=== PATIENT | male | born 1950 | race Two or more races ===

== ENCOUNTER 2019-10-26 19:06 | Emergency (ER) | payer MEDICARE, OTHER ==
[2019-10-26 19:09] VITALS: BP 179/80; PULSE 101
[2019-10-26] MEDS ORDERED: Diphtheria,Pertussis(Acell),Tetanus Vaccine 0.5 ML Syringe IM ONE (19:31)
[2019-10-26] MEDS ORDERED: cefTRIAXone 1 GM Vial IM ONE (19:31)
[2019-10-26] MEDS ORDERED: Lidocaine 1% 20 ML MDV INJECT ONE (19:35)
--- NOTE | 2019-10-26 19:35 | EDM.PDOC ---
ED HPI GENERAL MEDICAL PROBLEM - General Chief Complaint: General Stated Complaint: dog bite to R) hand Time Seen by Provider: 10/26/19 19:20 Source of Information: Reports: Patient History Limitations: Reports: No Limitations - History of Present Illness INITIAL COMMENTS - FREE TEXT/NARRATIVE: This patient is a 68 year old pleasant male that presents to the ER. Patient report that three days ago his ladies dog who is small and 14 years old scratched the top of his right hand. Patient reports he cleaned with soap and water everyday and after it happend and kept it covered. But over the past couple of days it has began to swell and red in color. Patient states NOT a dog BITE. A dog scratch. Onset Date: 10/23/19 Duration: Day(s): (3) Location: Reports: Upper Extremity, Right Front/Back Body Image: 1 - redness, swelling. 2 - small open wound. Severity: Moderate Improves with: Reports: None Worsens with: Reports: None Associated Symptoms: Denies: Confusion, Chest Pain, Cough, cough w sputum, Diaphoresis, Fever/Chills, Headaches, Loss of Appetite, Malaise, Nausea/Vomiting , Rash, Seizure, Shortness of Breath, Syncope, Weakness - Related Data Allergies Allergy/AdvReac Type Severity Reaction Status Date / Time No Known Allergies Allergy Verified 03/02/18 15:36 Home Meds: Home Meds Albuterol Sulfate [Albuterol Sulfate HFA] 2 puff INH Q4H PRN 03/10/15 [History] Aspirin [Halfprin] 1 tab PO DAILY 03/10/15 [History] Fluticasone/Salmeterol [Advair 500-50] 1 puff INH BID 03/10/15 [History] Hydrocodone/Acetaminophen [Hydrocodon-Acetaminophn 10-325] 1 tab PO TID PRN [History] Ipratropium [Atrovent] 1 vial INH Q6HR PRN 03/10/15 [History] Levothyroxine 1 tab PO DAILY 03/10/15 [History] Lisinopril 5 mg PO DAILY 03/10/15 [History] Montelukast Sodium 1 tab PO DAILY 03/10/15 [History] Amoxicillin/Potassium Clav [Augmentin 875-125 Tablet] 1 each PO BID #20 tablet 10/26/19 [Rx] Past Medical History HEENT History: Reports: Hard of Hearing Other HEENT History: wears bilateral HAs. Cardiovascular History: Reports: Hypertension Respiratory History: Reports: COPD, SOB Musculoskeletal History: Reports: Arthritis, Other (See Below) Other Musculoskeletal History: chronic left shoulder pain Psychiatric History: Reports: Anxiety, PTSD Endocrine/Metabolic History: Reports: Hypothyroidism - Infectious Disease History Infectious Disease History: Reports: Chicken Pox, Measles, Mumps, Rubella - Past Surgical History HEENT Surgical History: Reports: Other (See Below) Other HEENT Surgeries/Procedures: eyelid surgery GI Surgical History: Reports: Appendectomy Musculoskeletal Surgical History: Reports: Knee Replacement Other Musculoskeletal Surgeries/Procedures:: Partial L) knee replacement. Social & Family History - Family History Family Medical History: Noncontributory - Tobacco Use Smoking Status *Q: Former Smoker Used Tobacco, but Quit: Yes Month/Year Tobacco Last Used: 6 years ago - Caffeine Use Caffeine Use: Reports: None - Recreational Drug Use Recreational Drug Use: No ED ROS GENERAL - Review of Systems Review Of Systems: See Below Constitutional: Reports: No Symptoms. Denies: Fever HEENT: Reports: No Symptoms Respiratory: Reports: No Symptoms Cardiovascular: Reports: No Symptoms Endocrine: Reports: No Symptoms GI/Abdominal: Reports: No Symptoms : Reports: No Symptoms Musculoskeletal: Reports: No Symptoms Skin: Reports: Erythema (right hand), Wound (right hand ) Neurological: Reports: No Symptoms Psychiatric: Reports: No Symptoms Hematologic/Lymphatic: Reports: No Symptoms Immunologic: Reports: No Symptoms ED EXAM, GENERAL - Physical Exam Exam: See Below Exam Limited By: No Limitations General Appearance: Alert, WD/WN, No Apparent Distress, Other (chronic ill on oxygen) Respiratory/Chest: No Respiratory Distress, Decreased Breath Sounds (throughout moderate), Other (on oxygen chornically) Cardiovascular: Normal Peripheral Pulses, Regular Rate, Rhythm, No Edema, No Gallop, No JVD, No Murmur, No Rub Peripheral Pulses: 2+: Radial (L), Radial (R) Extremities: Normal Range of Motion, Normal Capillary Refill, Increased Warmth ( right hand), Redness (right hand), Other (no joint involvement. mild streaking to right foremarm. not circumferential. ) Neurological: Alert, Oriented Psychiatric: Normal Affect, Normal Mood Skin Exam: Warm, Dry, Erythema (right hand), Wound/Incision (small right hand [id number]. no drainage. no fluctulance) Lymphatic: No Adenopathy Course - Vital Signs Last Recorded V/S: Last Vital Signs Temp 98.1 F 10/26/19 19:06 Pulse 101 H 10/26/19 19:06 Resp 20 10/26/19 19:06 BP 179/80 H 10/26/19 19:06 Pulse Ox 94 L 10/26/19 19:06 - Orders/Labs/Meds Orders: Active Orders 24 hr Category Date Time Status Vaccines to be Administered [RC] PER UNIT ROUTINE Care 10/26/19 19:31 Active Hand Comp Min 3V Rt [CR] Stat Exams 10/26/19 19:53 Taken Meds: Medications Discontinued Medications Generic Name Dose Route Start Last Admin Trade Name Lucinda PRN Reason Stop Dose Admin Ceftriaxone Sodium 1 gm 10/26/19 19:31 10/26/19 19:40 Rocephin IM 10/26/19 19:32 1 gm ONETIME ONE Administration Diphtheria/Tetanus/Acell Pertussis 0.5 ml 10/26/19 19:31 10/26/19 19:34 Adacel IM 10/26/19 19:32 0.5 ml .ONCE ONE Administration Lidocaine HCl 1 ml 10/26/19 19:35 10/26/19 19:42 Xylocaine 1% INJECT 10/26/19 19:36 1 ml ONETIME ONE Administration - Re-Assessments/Exams Free Text/Narrative Re-Assessment/Exam: 10/26/19 20:31 Right Hand Xray: Soft Tissue swelling. NO FB. No fx. Departure - Departure Time of Disposition: 20:16 Disposition: Home, Self-Care 01 Condition: Fair Clinical Impression: Cellulitis Qualifiers: Site of cellulitis: extremity Site of cellulitis of extremity: upper extremity Laterality: right Qualified Code(s): L03.113 - Cellulitis of right upper limb - Discharge Information *PRESCRIPTION DRUG MONITORING PROGRAM REVIEWED*: Not Applicable *COPY OF PRESCRIPTION DRUG MONITORING REPORT IN PATIENT RONAL: Not Applicable Prescriptions: Amoxicillin/Potassium Clav [Augmentin 875-125 Tablet] 1 each PO BID #20 tablet Instructions: Cellulitis, Adult, Cellulitis, Adult, [id number] Forms: ED Department Discharge Additional Instructions: Followup with your primary care provider for recheck early next week Return to the ER for worsening of condition or any emergent concerns such as fever, vomiting, increase in redness Motrin over the counter for pain and swelling Wash the wound twice a day with soap and water, apply neosporin Elevate arm as needed for swelling Augmentin 875mg 1 pill twice a day for 10 days #20 no refill: Sent to pharmacy Sepsis Event Note - Evaluation Sepsis Screening Result: No Definite Risk - Focused Exam Vital Signs: Vital Signs Temp Pulse Resp BP Pulse Ox 10/26/19 19:06 98.1 F 101 H 20 179/80 H 94 L Date Exam was Performed: 10/26/19 Time Exam was Performed: 20:31 - My Orders Last 24 Hours: My Active Orders 10/26/19 19:31 Vaccines to be Administered [RC] PER UNIT ROUTINE 10/26/19 19:53 Hand Comp Min 3V Rt [CR] Stat - Assessment/Plan Last 24 Hours: My Active Orders 10/26/19 19:31 Vaccines to be Administered [RC] PER UNIT ROUTINE 10/26/19 19:53 Hand Comp Min 3V Rt [CR] Stat Plan: PLEASE SEE RN NOTE FOR PFSH.
== END 2019-10-26 20:31 | disposition home or self-care (01) ==
LOC: CC.ED 19:06
DX: L03.113 Cellulitis of right upper limb (principal); Z23 Encounter for immunization; I10 Essential (primary) hypertension; J44.9 Chronic obstructive pulmonary disease, unspecified; M19.90 Unspecified osteoarthritis, unspecified site; F41.9 Anxiety disorder, unspecified; E03.9 Hypothyroidism, unspecified; Z87.891 Personal history of nicotine dependence; Z79.82 Long term (current) use of aspirin; Z79.899 Other long term (current) drug therapy
CPT/HCPCS: 73130; 90471; 90715; 96372; 99283; J0696; J2001

== ENCOUNTER 2020-01-23 12:40 | Emergency (ER) | payer MEDICARE, OTHER ==
[2020-01-23] MEDS: Albuterol/Ipratropium 3.0-0.5 MG/3 ML Neb Soln NEB ONE ×2 (12:15→15:00)
[2020-01-23] MEDS ORDERED: Albuterol/Ipratropium 3.0-0.5 MG/3 ML Neb Soln ONE (12:52)
[2020-01-23] MEDS ORDERED: cefTRIAXone 1 GM Vial ONE (13:38)
[2020-01-23 13:50] VITALS: BP 119/65; PULSE 130
[2020-01-23 13:52] LABS: CHLORIDE,CL 98 mEq/L (98-106); SODIUM,NA 137 mEq/L (136-145)
[2020-01-23] MEDS ORDERED: Azithromycin 500 MG in Sodium Chloride 0.9% 250 ML IV SCH (14:00)
[2020-01-23] MEDS ORDERED: Sodium Chloride 0.9% 50 ML ONE (14:13)
--- NOTE | 2020-01-23 14:32 | EDM.PDOC ---
ED HPI GENERAL MEDICAL PROBLEM - General Chief Complaint: Respiratory Problem Stated Complaint: SOB Time Seen by Provider: 01/23/20 12:40 Source of Information: Reports: Patient, EMS History Limitations: Reports: Respiratory Distress - History of Present Illness INITIAL COMMENTS - FREE TEXT/NARRATIVE: Blake is a 69 yo male brought into the ED via [facility] with concerns of difficulty of breathing. Upon arrival per EMS patient was hypoxic in the low 80' s on continuous home oxygen at 3 liter per nasal canula. He was switched to cpap and were able to get his oxygen saturation above 90%. Patient has COPD. Patient states he used a albuterol treatment at home around noon. He admits to feeling ill starting last week, which started out with a headache and body aches. He admits to being seen at [facility] a few weeks ago in [place]. He states otherwise he has confined himself to his house but his radha been out at [employer], etc.. to get daily living necessities. Through out last week and into this week he has noticed symptoms to gradually get worse. Starting yesterday he felt an increased work of breathing. He complains of coughing up brownish sputum. Duration: Getting Worse Location: Reports: Chest Improves with: Reports: Medication, Rest Worsens with: Reports: Movement Associated Symptoms: Reports: cough w sputum, Diaphoresis, Headaches, Malaise, Shortness of Breath, Weakness. Denies: Chest Pain, Fever/Chills, Nausea/ Vomiting Treatments [employer]ING [employer]ER: Reports: Breathing Treatments, Other (see below) Other Treatments [employer]ST[employer]ER: CPAP - Related Data Allergies Allergy/AdvReac Type Severity Reaction Status Date / Time No Known Allergies Allergy Verified 01/23/20 13:25 Home Meds: Home Meds Albuterol Sulfate [Albuterol Sulfate HFA] 2 puff INH Q4H PRN 03/10/15 [History] Aspirin [Halfprin] 1 tab PO DAILY 03/10/15 [History] Fluticasone/Salmeterol [Advair 500-50] 1 puff INH BID 03/10/15 [History] Hydrocodone/Acetaminophen [Hydrocodon-Acetaminophn 10-325] 1 tab PO TID PRN [History] Ipratropium [Atrovent] 1 vial INH Q6HR PRN 05/18/15 [History] Levothyroxine 1 tab PO DAILY 03/10/15 [History] Lisinopril 5 mg PO DAILY 03/10/15 [History] Montelukast Sodium 1 tab PO DAILY 03/10/15 [History] Amoxicillin/Potassium Clav [Augmentin 875-125 Tablet] 1 each PO BID #20 tablet 10/26/19 [Rx] Past Medical History HEENT History: Reports: Hard of Hearing Other HEENT History: wears bilateral HAs. Cardiovascular History: Reports: Hypertension Respiratory History: Reports: COPD, SOB Musculoskeletal History: Reports: Arthritis, Other (See Below) Other Musculoskeletal History: chronic left shoulder pain Psychiatric History: Reports: Anxiety, PTSD Endocrine/Metabolic History: Reports: Hypothyroidism - Infectious Disease History Infectious Disease History: Reports: Chicken Pox, Measles, Mumps, Rubella - Past Surgical History HEENT Surgical History: Reports: Other (See Below) Other HEENT Surgeries/Procedures: eyelid surgery GI Surgical History: Reports: Appendectomy Musculoskeletal Surgical History: Reports: Knee Replacement Other Musculoskeletal Surgeries/Procedures:: Partial L) knee replacement. Social & Family History - Family History Family Medical History: Noncontributory - Tobacco Use Smoking Status *Q: Former Smoker Used Tobacco, but Quit: Yes Month/Year Tobacco Last Used: 2009 - Caffeine Use Caffeine Use: Reports: None ED ROS GENERAL - Review of Systems Review Of Systems: See Below Constitutional: Reports: Malaise, Weakness, Fatigue, Diaphoresis. Denies: Fever , Chills HEENT: Reports: Rhinitis, Throat Pain (mild). Denies: Throat Swelling Respiratory: Reports: Shortness of Breath, Wheezing, Cough, Sputum. Denies: Pleuritic Chest Pain Cardiovascular: Reports: Dyspnea on Exertion. Denies: Chest Pain, Palpitations GI/Abdominal: Denies: Abdominal Pain, Bloody Stool, Constipation, Diarrhea, Nausea, Vomiting : Reports: No Symptoms Skin: Reports: No Symptoms Neurological: Reports: Headache Psychiatric: Reports: No Symptoms ED EXAM, GENERAL - Physical Exam Exam: See Below Exam Limited By: No Limitations General Appearance: Alert, Moderate Distress Eye Exam: Bilateral Eye: Normal Inspection Ears: Normal External Exam, Normal Canal, Normal TMs, Hearing Loss (hearing aid right ear.) Nose: Normal Inspection, Normal Mucosa, No Blood, Clear Rhinorrhea Throat/Mouth: Normal Inspection, Normal Lips, Normal Teeth, Normal Gums, Normal Oropharynx, Normal Voice, No Airway Compromise Head: Atraumatic, Normocephalic Neck: Normal Inspection, Supple Respiratory/Chest: Decreased Breath Sounds, Wheezing, Accessory Muscle Use Cardiovascular: No Edema, No Murmur, Tachycardia GI/Abdominal: Normal Bowel Sounds, Soft, Non-Tender, No Organomegaly, No Distention Extremities: Normal Inspection, No Pedal Edema, Normal Capillary Refill Neurological: Alert, Oriented, Normal Cognition, No Motor/Sensory Deficits Psychiatric: Anxious Skin Exam: Diaphoretic, Increased Warmth EKG INTERPRETATION EKG Date: 01/23/20 Rhythm: Other (sinus tachycardia) ST-T: Normal QT: Normal Comparison: NA - No Prior EKG Course - Vital Signs Last Recorded V/S: Last Vital Signs Temp 99.2 F 01/23/20 13:49 Pulse 130 H 01/23/20 13:49 Resp 22 H 01/23/20 13:49 BP 119/65 01/23/20 13:49 Pulse Ox 95 01/23/20 13:49 - Orders/Labs/Meds Orders: Active Orders 24 hr Category Date Time Status Chest 1V Frontal [CR] Stat Exams 01/23/20 12:36 Taken CORONAVIRUS COVID-19 PCR PHL [MREF] Stat Lab 01/23/20 13:14 Ordered PROCALCITONIN [REF] Stat Lab 01/23/20 12:47 Ordered Isolation [COMM] Routine Oth 01/23/20 12:38 Active Labs: Laboratory Tests 01/23/20 01/23/20 01/23/20 Range/Units 12:36 13:30 13:30 WBC 15.0 H (5.0-10.0) 10^3/uL RBC 4.37 L (4.50-6.00) 10^6/uL Hgb 12.9 L (14.0-18.0) g/dL Hct 39.7 L (40.0-54.0) % MCV 90.8 (82.0-94.0) fL MCH 29.5 (27.0-32.0) pg MCHC 32.5 L (33.0-38.0) g/dL RDW Coeff of Lena 13.2 (11.0-15.0) % Plt Count 216 (150-400) 10^3/uL Neut % (Auto) 85.6 H (35-85) % Lymph % (Auto) 4.7 L (10-55) % Cache % (Auto) 9.6 (0-16) % Eos % (Auto) 0 (0-5) % Baso % (Auto) 0.1 (0-3) % Neut # (Auto) 12.82 H (1.80-7.00) 10^3/uL Lymph # (Auto) 0.70 L (1.00-4.80) 10^3/uL Cache # (Auto) 1.43 H (0.00-0.80) 10^3/uL Eos # (Auto) 0.00 (0.00-0.45) 10^3/uL Baso # (Auto) 0.01 10^3/uL Sodium 137 (136-145) mEq/L Potassium 3.7 (3.5-5.0) mEq/L Chloride 98 (98-106) mEq/L Carbon Dioxide 28 (21-32) mmol/L BUN 21 H D (7-18) mg/dL Creatinine 1.1 (0.7-1.3) mg/dL Est Cr Clr Drug Dosing 58.42 mL/min Estimated GFR (MDRD) > 60 (>=60) mL/min Glucose 205 H D (75-99) mg/dL Lactic Acid 2.9 H (0.4-2.0) mmol/L Calcium 8.6 (8.4-10.1) mg/dL Creatine Kinase 156 (35-232) U/L Troponin I 0.026 (0.00-0.06) ng/mL C-Reactive Protein 15.3 H (0.2-0.8) mg/dL NT-Pro-B Natriuret Pep 514 (0-1000) pg/mL Meds: Medications Discontinued Medications Generic Name Dose Route Start Last Admin Trade Name Freq PRN Reason Stop Dose Admin Albuterol/Ipratropium Confirm 01/23/20 12:52 Duoneb 3.0-0.5 Mg/3 Ml Administered 01/23/20 12:53 Dose 9 ml .ROUTE .STK-MED ONE Azithromycin Confirm 01/23/20 13:38 Zithromax Administered 01/23/20 13:39 Dose 500 mg .ROUTE .STK-MED ONE Ceftriaxone Sodium Confirm 01/23/20 13:38 Rocephin Administered 01/23/20 13:39 Dose 1 gm .ROUTE .[facility]-MED ONE - Radiology Interpretation Free Text/Narrative:: Chest x-ray negative for any infiltrate. Atelectasis noted. No acute cardiopulmonary findings. Pending final radiology report. Departure - Departure Time of Disposition: 13:00 Disposition: DC/Tfer to [facility] 02 Clinical Impression: COPD with exacerbation, Respiratory distress - Discharge Information Referrals: PCP,Unknown [Primary Care Provider] - Sepsis Event Note - Evaluation Sepsis Screening Result: Possible Sepsis Risk - Focused Exam Vital Signs: Vital Signs Temp Pulse Resp BP Pulse Ox 01/23/20 13:49 99.2 F 130 H 22 H 119/65 95 01/23/20 13:26 99.2 F 132 H 26 H 172/88 H 96 01/23/20 13:15 99 F 129 H 24 H 134/76 96 Date Exam was Performed: 01/23/20 Time Exam was Performed: 14:26 - Problem List & Annotations (1) COPD with exacerbation SNOMED Code(s): 441209151 Code(s): J44.1 - CHRONIC OBSTRUCTIVE PULMONARY DISEASE W (ACUTE) EXACERBATION Status: Acute Current Visit: Yes (2) Respiratory distress SNOMED Code(s): 272039293 Code(s): R06.03 - ACUTE RESPIRATORY DISTRESS Status: Acute Current Visit : Yes - My Orders Last 24 Hours: My Active Orders 01/23/20 12:36 Chest 1V Frontal [CR] Stat 01/23/20 12:38 Isolation [COMM] Routine 01/23/20 12:47 PROCALCITONIN [REF] Stat 01/23/20 13:14 CORONAVIRUS COVID-19 PCR PHL [MREF] Stat - Assessment/Plan Last 24 Hours: My Active Orders 01/23/20 12:36 Chest 1V Frontal [CR] Stat 01/23/20 12:38 Isolation [COMM] Routine 01/23/20 12:47 PROCALCITONIN [REF] Stat 01/23/20 13:14 CORONAVIRUS COVID-19 PCR PHL [MREF] Stat Plan: Patient has been stable on non-rebreather after receiving DuoNeb treatment in ED. Oxygen saturation has remained around 93-95 on 8 Liters per [place] [address]. CRP elevated to 15.3 and lactic acid at 2.9. Influenza is negative. COVID 19 pending. 1 gm of Rocephin and 500mg of Azithromycin given intravenously in ED. Consulted with Jeremy for assistance with arranging transfer to higher level of care. Dr[facility] in [place], kindly accepted transfer. ALS transfer via [facility] arranged. Risks and benefits of transfer discussed into detail with patient. Risks of transfer included increased respiratory distress, MVA or . Benefits of transfer included higher level of care with appropriate specialists and equipment. Risks of non-transfer included worsening of condition, unable to care for patient's condition and the possibility of . Benefits of non- transfer included staying in a familiar environment and close to home. Patient verbalized understanding and in agreement with transfer.
[2020-01-23] MEDS ORDERED: Acetaminophen 500 MG Tab PO ONE (15:13)
[2020-01-23] MEDS: Sodium Chloride 0.9% 250 ML ONE ×2 (15:17→17:43)
[2020-01-23] MEDS: Azithromycin 500 MG Vial ONE ×2 (15:19→17:34)
== END 2020-01-23 15:45 ==
LOC: CC.ED 12:40
DX: J44.1 Chronic obstructive pulmonary disease with (acute) exacerbation (principal); I10 Essential (primary) hypertension; E03.9 Hypothyroidism, unspecified; Z79.82 Long term (current) use of aspirin; Z79.899 Other long term (current) drug therapy
CPT/HCPCS: 36415; 71045; 80048; 82550; 83605; 83880; 84145; 84484; 85025; 86140; 87804; 93005; 93010; 96365; 99285-25; A9270-GY; J0456; J0696; J7050; J7620-GY; U0002

== ENCOUNTER 2021-07-26 17:26 | Inpatient (IN) | payer OTHER, MEDICARE ==
[~2021-07-26 17:26] MED LIST: Albuterol/Ipratropium 3.0-0.5 MG/3 ML Neb Soln ONE
[2021-07-26] MEDS ORDERED: Albuterol/Ipratropium 3.0-0.5 MG/3 ML Neb Soln NEB ONE (17:46)
[2021-07-26] MEDS ORDERED: methylPREDNISolone Sodium Succinate 125 MG/2 ML SDV IVPUSH STA (17:47)
[2021-07-26] MEDS ORDERED: Acetaminophen 500 MG Tab PO ONE (17:57)
[2021-07-26 18:53] LABS: CHLORIDE,CL 101 mEq/L (98-106); SODIUM,NA 142 mEq/L (136-145)
[2021-07-26] MEDS ORDERED: Iopamidol 755 Mg/ML 100 ML Bottle IVPUSH ONE (19:32)
[2021-07-26] MEDS ORDERED: Albuterol 0.083% 2.5 MG/3 ML Neb Soln NEB PRN (21:17)
[2021-07-26] MEDS ORDERED: Acetaminophen 325 MG Tab PO PRN (21:17)
[2021-07-26] MEDS ORDERED: Ondansetron 4 MG/2 ML SDV IV PRN (21:17)
[2021-07-26] MEDS ORDERED: Ondansetron 4 MG Tab.DIS PO PRN (21:17)
[2021-07-26] MEDS ORDERED: Sodium Chloride 0.9% 10 ML Syringe FLUSH PRN (21:17)
[2021-07-26] MEDS ORDERED: REMDESIVIR 200 MG in Sodium Chloride 0.9% 250 ML IV ONE (21:20)
[2021-07-26] MEDS ORDERED: ACETAMINOPHEN PO PRN (21:32)
[2021-07-26] MEDS ORDERED: HYDROCODONE PO PRN (21:32)
[2021-07-26] MEDS ORDERED: [UNRECOGNIZED DRUG - OTHER] PO PRN (21:32)
--- NOTE | 2021-07-26 23:35 | EDM.PDOC ---
ED HPI GENERAL MEDICAL PROBLEM - General Chief Complaint: General Stated Complaint: "not feeling well" Time Seen by Provider: 07/26/21 17:55 Source of Information: Reports: Patient, EMS History Limitations: Reports: No Limitations - History of Present Illness INITIAL COMMENTS - FREE TEXT/NARRATIVE: Blake is a 70 year old male who presents to ER per EMS with complaints of increa sed SOB. States has been feeling this for the last 4 days but today seemed to be worse. Has been using his nebs at home. Has had increased cough, occasional phlegm production, clear for the most part in color. Has felt hot and cold at times, unsure if any fevers. Reduced appetite. Has been taking fluids well. No nausea or vomiting. No diarrhea. Has had covid vaccine. Onset: Gradual Duration: Day(s):, Getting Worse Location: Reports: Chest Improves with: Reports: Medication Worsens with: Reports: Movement Associated Symptoms: Reports: Cough, cough w sputum, Fever/Chills, Shortness of Breath, Weakness. Denies: Chest Pain, Loss of Appetite, Nausea/Vomiting Treatments DEATH CLAIM EXAMINER: Reports: Breathing Treatments - Related Data Allergies Allergy/AdvReac Type Severity Reaction Status Date / Time No Known Allergies Allergy Verified 07/26/21 18:23 Home Meds: Home Meds Albuterol Sulfate [Albuterol Sulfate HFA] 2 puff INH Q4H PRN 03/10/15 [History] Aspirin [Halfprin] 1 tab PO DAILY 03/10/15 [History] Hydrocodone/Acetaminophen [Hydrocodon-Acetaminophn 10-325] 1 tab PO TID PRN 03/10/15 [History] Ipratropium [Atrovent] 1 vial INH Q6HR PRN 03/10/15 [History] Levothyroxine 150 mcg PO DAILY 03/10/15 [History] Lisinopril 10 mg PO BID 03/10/15 [History] Montelukast Sodium 1 tab PO DAILY 03/10/15 [History] Acetaminophen [Tylenol Extra Strength] 500 mg PO Q6H PRN 01/31/20 [History] Ascorbic Acid 500 mg PO BID 01/31/20 [History] Cholecalciferol (Vitamin D3) [Vitamin D3] 50 mcg PO DAILY 01/31/20 [History] Fluticasone/Salmeterol [Advair 500-50] 1 inh INH BID 01/31/20 [History] Metoprolol Succinate [Toprol XL 100mg] 50 mg PO DAILY 01/31/20 [History] Naloxone HCl 1 inh INH ASDIRECTED 01/31/20 [History] [place]-3/DHA/Epa/Fish Oil [[place] 3 500 Softgel] 1,000 mg PO DAILY 01/31/20 [History] Tiotropium [Spiriva HandiHaler] 1 inh INH BEDTIME 01/31/20 [History] Vitamin E 250 units PO DAILY 01/31/20 [History] amLODIPine [Norvasc] 10 mg PO DAILY 01/31/20 [History] predniSONE 10 mg PO DAILY 01/31/20 [History] Past Medical History HEENT History: Reports: Hard of Hearing Other HEENT History: wears bilateral HAs. Cardiovascular History: Reports: Hypertension Respiratory History: Reports: COPD, SOB Musculoskeletal History: Reports: Arthritis, Back Pain, Chronic, Other (See Below) Other Musculoskeletal History: chronic left shoulder pain Psychiatric History: Reports: Anxiety, PTSD Endocrine/Metabolic History: Reports: Hypothyroidism - Infectious Disease History Infectious Disease History: Reports: Chicken Pox, Measles, Mumps, Novel Coronavirus, Rubella - Past Surgical History HEENT Surgical History: Reports: Other (See Below) Other HEENT Surgeries/Procedures: eyelid surgery GI Surgical History: Reports: Appendectomy Musculoskeletal Surgical History: Reports: Knee Replacement Other Musculoskeletal Surgeries/Procedures:: Partial L) knee replacement. Social & Family History - Family History Family Medical History: No Pertinent Family History - Tobacco Use Tobacco Use Status *Q: Former Tobacco User Used Tobacco, but Quit: Yes Month/Year Tobacco Last Used: 8 years - Caffeine Use Caffeine Use: Reports: Coffee - Recreational Drug Use Recreational Drug Use: No ED ROS GENERAL - Review of Systems Review Of Systems: See Below Constitutional: Reports: Chills, Malaise, Weakness, Fatigue, Decreased Appetite. Denies: Fever HEENT: Reports: Rhinitis. Denies: Ear Pain, Hearing Loss, Sinus Problem, Throat Pain, Vertigo Respiratory: Reports: Shortness of Breath, Cough, Sputum Cardiovascular: Denies: Chest Pain, Edema, Lightheadedness Endocrine: Reports: Fatigue GI/Abdominal: Reports: Decreased Appetite. Denies: Abdominal Pain, Constipation, Diarrhea, Nausea, Vomiting : Denies: Dysuria Musculoskeletal: Reports: No Symptoms Skin: Reports: No Symptoms Neurological: Reports: Weakness. Denies: Headache ED EXAM, GENERAL - Physical Exam Exam: See Below Exam Limited By: Respiratory Distress General Appearance: Alert, Mild Distress Ears: Normal External Exam, Normal TMs Nose: Normal Inspection, Normal Mucosa, No Blood Throat/Mouth: Normal Inspection, Normal Oropharynx Head: Normocephalic Neck: Normal Inspection, Supple, Non-Tender Respiratory/Chest: Respiratory Distress, Decreased Breath Sounds, Crackles Cardiovascular: Regular Rate, Rhythm GI/Abdominal: Normal Bowel Sounds, Soft, Non-Tender Extremities: Normal Inspection, No Pedal Edema Neurological: Alert, Oriented Skin Exam: Warm, Dry Course - Vital Signs Last Recorded V/S: Last Vital Signs Temp 101.8 F H 07/26/21 21:17 Pulse 98 07/26/21 21:17 Resp 22 H 07/26/21 21:17 BP 125/69 07/26/21 21:17 Pulse Ox 92 L 07/26/21 21:17 - Orders/Labs/Meds Orders: Active Orders 24 hr Category Date Time Status RT Aerosol Therapy [RC] 0800,1200,1600,2000 Care 07/26/21 17:46 Active Ang Chest [CT] Stat Exams 07/26/21 19:39 Taken Chest 2V [CR] Stat Exams 07/26/21 17:47 Taken Medication Orders Acetaminophen (Acetaminophen 325 Mg Tab) 650 mg PO Q4H PRN PRN Reason: Pain (Mild 1-3)/fever Last Admin: 07/26/21 21:57 Dose: 650 mg Documented by: SOHAM Albuterol (Albuterol 0.083% 2.5 Mg/3 Ml Neb Soln) 2.5 mg NEB Q2H PRN PRN Reason: Shortness Of Breath/wheezing Albuterol/Ipratropium (Albuterol/Ipratropium 3.0-0.5 Mg/3 Ml Neb Soln) 3 ml NEB QID ZEHRA Amlodipine Besylate (Amlodipine 10 Mg Tab) 10 mg PO DAILY ZEHRA Ascorbic Acid (Ascorbic Acid 500 Mg Tab) 500 mg PO BID ZEHRA Aspirin (Aspirin 81 Mg Tab.Ec) 81 mg PO DAILY ZEHRA Cholecalciferol (Cholecalciferol (Vitamin D3) 25 Mcg Tab) 50 mcg PO DAILY ZEHRA Dexamethasone (Dexamethasone 4 Mg/Ml Sdv) 10 mg IVPUSH DAILY ZEHRA Remdesivir 100 mg/ Sodium (Chloride) 100 mls @ 100 mls/hr IV Q24H ZEHRA Stop: 07/30/21 20:59 Levothyroxine Sodium (Levothyroxine 150 Mcg Tab) 150 mcg PO DAILY@0700 ON LICENSE OF [facility] Lisinopril (Lisinopril 10 Mg Tab) 10 mg PO BID ON LICENSE OF [facility] Metoprolol Succinate (Metoprolol Succinate 25 Mg Tab.Er) 50 mg PO DAILY ON LICENSE OF [facility] Mometasone Furoate/Formoterol Fumar (Formoterol/Mometasone 200-5 Mcg 8.8 Gm Inhaler) 2 puff IH BID ON LICENSE OF [facility] Montelukast Sodium (Montelukast 10 Mg Tab) 10 mg PO DAILY ON LICENSE OF [facility] Non-Formulary Medication (Hydrocodone/Acetaminophen [Hydrocodone-Acetamin 10-325 Mg]) 1 tab PO TID PRN PRN Reason: Pain Non-Formulary Medication (Vitamin E [Vitamin E]) 250 units PO DAILY ON LICENSE OF [facility] Ondansetron HCl (Ondansetron 4 Mg Tab.Dis) 4 mg PO Q4H PRN PRN Reason: nausea, able to take PO Ondansetron HCl (Ondansetron 4 Mg/2 Ml Sdv) 4 mg IV Q4H PRN PRN Reason: Nausea/Vomiting Sodium Chloride (Sodium Chloride 0.9% 10 Ml Syringe) 10 ml FLUSH ASDIRECTED PRN PRN Reason: Keep Vein Open Labs: Laboratory Tests 07/26/21 07/26/21 07/26/21 Range/Units 18:06 18:34 18:34 WBC 11.7 H (4.0-11.0) 10^3/uL RBC 4.85 (4.50-6.00) x10^6/uL Hgb 15.1 (14.0-18.0) g/dL Hct 45.1 (42.0-52.0) % MCV 93.0 (83.0-97.0) fL MCH 31.1 (27.0-32.0) pg MCHC 33.5 (32.0-36.0) g/dL RDW Coeff of Lena 12.8 (11.0-15.0) % Plt Count 141 L (150-400) 10^3/uL Immature Gran % (Auto) 0.2 (0.0-4.9) % Neut % (Auto) 70.0 (41-71) % Lymph % (Auto) 23.8 L (24-44) % Borden % (Auto) 5.7 (0-10) % Eos % (Auto) 0.0 (0-6) % Baso % (Auto) 0.3 (0-1) % Neut # (Auto) 8.17 H (1.80-8.00) x10^3/uL Lymph # (Auto) 2.77 (0.60-5.00) 10^3/uL Borden # (Auto) 0.66 (0.00-1.50) 10^3/uL Eos # (Auto) 0.00 (0.00-1.50) 10^3/uL Baso # (Auto) 0.03 (0.00-0.50) 10^3/uL Immature Gran # (Auto) 0.02 (0.00-0.49) 10^3/uL D-Dimer, Quantitative 1.57 H (0.00-0.50) Sodium (136-145) mEq/L Potassium (3.5-5.0) mEq/L Chloride (98-106) mEq/L Carbon Dioxide (21-32) mmol/L BUN (7-18) mg/dL Creatinine (0.7-1.3) mg/dL Est Cr Clr Drug Dosing mL/min Estimated GFR (MDRD) (>=60) mL/min Glucose (75-99) mg/dL Calcium (8.4-10.1) mg/dL Total Bilirubin (0.0-1.0) mg/dL AST (15-37) U/L ALT (12-78) U/L Alkaline Phosphatase (46-116) U/L C-Reactive Protein (0.2-0.8) mg/dL NT-Pro-B Natriuret Pep (0-1000) pg/mL Total Protein (6.4-8.2) g/dL Albumin (3.4-5.0) g/dL SARS CoV-2 RNA Rapid SABRINA Positive H (NEGATIVE) 07/26/21 Range/Units 18:34 WBC (4.0-11.0) 10^3/uL RBC (4.50-6.00) x10^6/uL Hgb (14.0-18.0) g/dL Hct (42.0-52.0) % MCV (83.0-97.0) fL MCH (27.0-32.0) pg MCHC (32.0-36.0) g/dL RDW Coeff of Lena (11.0-15.0) % Plt Count (150-400) 10^3/uL Immature Gran % (Auto) (0.0-4.9) % Neut % (Auto) (41-71) % Lymph % (Auto) (24-44) % Borden % (Auto) (0-10) % Eos % (Auto) (0-6) % Baso % (Auto) (0-1) % Neut # (Auto) (1.80-8.00) x10^3/uL Lymph # (Auto) (0.60-5.00) 10^3/uL Borden # (Auto) (0.00-1.50) 10^3/uL Eos # (Auto) (0.00-1.50) 10^3/uL Baso # (Auto) (0.00-0.50) 10^3/uL Immature Gran # (Auto) (0.00-0.49) 10^3/uL D-Dimer, Quantitative (0.00-0.50) Sodium 142 (136-145) mEq/L Potassium 3.6 (3.5-5.0) mEq/L Chloride 101 (98-106) mEq/L Carbon Dioxide 25 (21-32) mmol/L BUN 15 (7-18) mg/dL Creatinine 1.1 (0.7-1.3) mg/dL Est Cr Clr Drug Dosing 57.59 mL/min Estimated GFR (MDRD) > 60 (>=60) mL/min Glucose 138 H D (75-99) mg/dL Calcium 8.8 (8.4-10.1) mg/dL Total Bilirubin 0.4 (0.0-1.0) mg/dL AST 34 (15-37) U/L ALT 27 (12-78) U/L Alkaline Phosphatase 42 L (46-116) U/L C-Reactive Protein 8.6 H (0.2-0.8) mg/dL NT-Pro-B Natriuret Pep 234 (0-1000) pg/mL Total Protein 7.8 (6.4-8.2) g/dL Albumin 3.4 (3.4-5.0) g/dL SARS CoV-2 RNA Rapid SABRINA (NEGATIVE) Meds: Medications Generic Name Dose Route Start Last Admin Trade Name Freq PRN Reason Stop Dose Admin Acetaminophen 650 mg 07/26/21 21:17 07/26/21 21:57 Acetaminophen 325 Mg Tab PO 650 mg Q4H PRN Administration Pain (Mild 1-3)/fever Albuterol 2.5 mg 07/26/21 21:17 Albuterol 0.083% 2.5 Mg/3 Ml Neb Soln NEB Q2H PRN Shortness Of Breath/wheezing Albuterol/Ipratropium 3 ml 07/27/21 08:00 Albuterol/Ipratropium 3.0-0.5 Mg/3 Ml Neb Soln NEB QID ZEHRA Amlodipine Besylate 10 mg 07/27/21 08:00 Amlodipine 10 Mg Tab PO DAILY ON LICENSE OF [facility] Ascorbic Acid 500 mg 07/27/21 08:00 Ascorbic Acid 500 Mg Tab PO BID ON LICENSE OF [facility] Aspirin 81 mg 07/27/21 08:00 Aspirin 81 Mg Tab.Ec PO DAILY ON LICENSE OF [facility] Cholecalciferol 50 mcg 07/27/21 08:00 Cholecalciferol (Vitamin D3) 25 Mcg Tab PO DAILY ON LICENSE OF [facility] Dexamethasone 10 mg 07/27/21 08:00 Dexamethasone 4 Mg/Ml Sdv IVPUSH DAILY ON LICENSE OF [facility] Remdesivir 100 mg/ Sodium 100 mls @ 100 mls/hr 07/27/21 20:00 Chloride IV 07/30/21 20:59 Q24H ON LICENSE OF [facility] Levothyroxine Sodium 150 mcg 07/27/21 07:00 Levothyroxine 150 Mcg Tab PO DAILY@0700 ON LICENSE OF [facility] Lisinopril 10 mg 07/27/21 08:00 Lisinopril 10 Mg Tab PO BID ON LICENSE OF [facility] Metoprolol Succinate 50 mg 07/27/21 08:00 Metoprolol Succinate 25 Mg Tab.Er PO DAILY ON LICENSE OF [facility] Mometasone Furoate/Formoterol Fumar 2 puff 07/27/21 08:00 Formoterol/Mometasone 200-5 Mcg 8.8 Gm Inhaler IH BID ON LICENSE OF [facility] Montelukast Sodium 10 mg 07/27/21 08:00 Montelukast 10 Mg Tab PO DAILY ON LICENSE OF [facility] Non-Formulary Medication 1 tab 07/26/21 21:32 Hydrocodone/Acetaminophen [Hydrocodone-Acetamin 10-325 Mg] PO TID PRN Pain Non-Formulary Medication 250 units 07/27/21 08:00 Vitamin E [Vitamin E] PO DAILY ZEHRA Ondansetron HCl 4 mg 07/26/21 21:17 Ondansetron 4 Mg Tab.Dis PO Q4H PRN nausea, able to take PO Ondansetron HCl 4 mg 07/26/21 21:17 Ondansetron 4 Mg/2 Ml Sdv IV Q4H PRN Nausea/Vomiting Sodium Chloride 10 ml 07/26/21 21:17 Sodium Chloride 0.9% 10 Ml Syringe FLUSH ASDIRECTED PRN Keep Vein Open Discontinued Medications Generic Name Dose Route Start Last Admin Trade Name Freq PRN Reason Stop Dose Admin Acetaminophen 1,000 mg 07/26/21 17:57 07/26/21 18:00 Acetaminophen 500 Mg Tab PO 07/26/21 17:58 1,000 mg ONETIME ONE Administration Albuterol/Ipratropium Confirm 07/26/21 17:20 07/26/21 17:52 Albuterol/Ipratropium 3.0-0.5 Mg/3 Ml Neb Soln Administered 07/26/21 17:21 Not Given Dose 3 ml .ROUTE .STK-MED ONE Albuterol/Ipratropium 3 ml 07/26/21 17:46 07/26/21 17:46 Albuterol/Ipratropium 3.0-0.5 Mg/3 Ml Neb Soln NEB 07/26/21 17:47 3 ml ONETIME ONE Administration Remdesivir 200 mg/ Sodium 250 mls @ 250 mls/hr 07/26/21 21:20 07/26/21 21:55 Chloride IV 07/26/21 21:21 250 mls/hr ONETIME ONE Administration Iopamidol 100 ml 07/26/21 19:32 07/26/21 20:22 Iopamidol 755 Mg/Ml 100 Ml Bottle IVPUSH 07/26/21 19:33 100 ml ONETIME ONE Administration Methylprednisolone Sodium Succinate 125 mg 07/26/21 17:47 07/26/21 18:03 Methylprednisolone Sodium Succinate 125 Mg/2 Ml Sdv IVPUSH 07/26/21 17:48 125 mg STAT STA Administration Non-Formulary Medication 150 tab 07/27/21 08:00 Levothyroxine PO DAILY ZEHRA - Re-Assessments/Exams Free Text/Narrative Re-Assessment/Exam: 07/26/21 Patient given neb and IV started. In to assess patient, evaluation done. Has fever of 102.5. Covid swab obtained. Has had vaccine. 1819-Covid positive. Sats are greater than 90% with oxygen increased to 9 liters. 1844-Did contact [facility] and spoke with hospitalist Dr. Palumbo in regards to COPD patient and need for increased amounts of oxygen and covid positive. Questions asked in regards to delivery of oxygen as concerns for PPV with high flow oxygen. Dr. Palumbo did suggest BiPap, which we do not have available. Will use CPAP if needed. Obtain CTA for elevated d-dimer. Continue with nebs, Remdesivir and Dexamethasone as planned. 1944-Patient stable at this point. Will admit inpatient. Dr. Lane aware 1999- CTA of chest done, await results 2129-With another patient in transfer over the last hour. Patient admitted to floor. Admits is feeling better at this time. CT results show no PE, does have bilateral infiltrates. Due to COPD, will start IV antibiotics as well as a precaution. Departure - Departure Time of Disposition: 21:00 Disposition: Admitted As Inpatient 65 Condition: Fair Clinical Impression: COPD with exacerbation, Oxygen dependent, Respiratory distress - Discharge Information *PRESCRIPTION DRUG MONITORING PROGRAM REVIEWED*: No *COPY OF PRESCRIPTION DRUG MONITORING REPORT IN PATIENT RONAL: No Sepsis Event Note (ED) - Evaluation Sepsis Screening Result: Possible Sepsis Risk - Focused Exam Vital Signs: Vital Signs Temp Temp Pulse Resp BP Pulse Ox 07/26/21 18:53 108 H 22 H 93 L 07/26/21 18:51 101.5 F H 07/26/21 18:42 24 H 90 L 07/26/21 18:38 101.5 F H 115 H 26 H 141/79 H 88 L 07/26/21 18:00 102.5 F H 92 L 07/26/21 17:30 102.5 F H 120 H 20 159/80 H 88 L - Problem List & Annotations (1) COVID-19 SNOMED Code(s): 216102635 Code(s): U07.1 - COVID-19 Status: Acute Priority: High Current Visit: Yes (2) Oxygen dependent SNOMED Code(s): 732661201015 Code(s): Z99.81 - DEPENDENCE ON SUPPLEMENTAL OXYGEN Status: Acute Priority: High Current Visit: Yes (3) COPD with exacerbation SNOMED Code(s): 912600985 Code(s): J44.1 - CHRONIC OBSTRUCTIVE PULMONARY DISEASE W (ACUTE) EXACERBATION Status: Acute Priority: High Current Visit: Yes (4) Respiratory distress SNOMED Code(s): 846363521 Code(s): R06.03 - ACUTE RESPIRATORY DISTRESS Status: Acute Priority: High Current Visit: Yes - Problem List Review Problem List Initiated/Reviewed/Updated: Yes - My Orders Last 24 Hours: My Active Orders 07/26/21 17:46 RT Aerosol Therapy [RC] 0800,1200,1600,199907/26/21 17:47 Chest 2V [CR] Stat 07/26/21 19:39 Ang Chest [CT] Stat - Assessment/Plan Admission H&P: Please use this note as an admission H&P Last 24 Hours: My Active Orders 07/26/21 17:46 RT Aerosol Therapy [RC] 0800,1200,1600,199907/26/21 17:47 Chest 2V [CR] Stat 07/26/21 19:39 Ang Chest [CT] Stat Assessment:: Covid 19 COPD Exacerbation Plan: ADmit inpatient. Administer Remdesivir. Dexamethasone. Start IV antibiotics due to COPD. Administer nebs with caution. Oxygen as needed to keep sats greater than 90%. Dr. Lane aware of admission.
[2021-07-26] MEDS ORDERED: cefTRIAXone 1 GM Vial IVPUSH SCH (23:45)
[2021-07-26] MEDS ORDERED: Azithromycin 500 MG in Sodium Chloride 0.9% 250 ML IV SCH (23:45)
[2021-07-27] MEDS ORDERED: Levothyroxine 150 MCG Tab PO SCH (07:00)
[2021-07-27 07:52] LABS: CHLORIDE,CL 104 mEq/L (98-106); SODIUM,NA 141 mEq/L (136-145)
[2021-07-27] MEDS ORDERED: amLODIPine 10 MG Tab PO SCH (08:00)
[2021-07-27] MEDS ORDERED: Non-Formulary Medication 1 Each (Fluticasone/Salmeterol 14 PUFF/DISKUS Diskus) INH SCH (08:00)
[2021-07-27] MEDS ORDERED: Metoprolol Succinate 25 MG Tab.ER PO SCH (08:00)
[2021-07-27] MEDS ORDERED: Lisinopril 10 MG Tab PO SCH (08:00)
[2021-07-27] MEDS ORDERED: LEVOTHYROXINE 200 MCG PO SCH (08:00)
[2021-07-27] MEDS ORDERED: Cholecalciferol (Vitamin D3) 25 MCG Tab PO SCH (08:00)
[2021-07-27] MEDS ORDERED: Formoterol/Mometasone 200-5 MCG 8.8 GM Inhaler IH SCH (08:00)
[2021-07-27] MEDS ORDERED: Albuterol/Ipratropium 3.0-0.5 MG/3 ML Neb Soln NEB SCH (08:00)
[2021-07-27] MEDS ORDERED: Montelukast 10 MG Tab PO SCH (08:00)
[2021-07-27] MEDS ORDERED: Aspirin 81 MG Tab.EC PO SCH (08:00)
[2021-07-27] MEDS ORDERED: Dexamethasone 4 MG/ML SDV IVPUSH SCH (08:00)
[2021-07-27] MEDS ORDERED: Ascorbic Acid 500 MG Tab PO SCH (08:00)
[2021-07-27 08:10] VITALS: BP 156/78
[2021-07-27 08:49] VITALS: PULSE 93
[2021-07-27] MEDS ORDERED: Enoxaparin 40 MG/0.4 ML Syringe SUBCUT SCH (12:00)
[2021-07-27] MEDS ORDERED: REMDESIVIR 100 MG in Sodium Chloride 0.9% 100 ML IV SCH (20:00)
--- NOTE | 2021-07-27 23:44 | DISCH ---
ADMISSION DIAGNOSES: 1. COVID-19 pneumonia. 2. Chronic obstructive pulmonary disease exacerbation. 3. Hypertension. 4. Hypothyroidism. DISCHARGE DIAGNOSIS: 1. COVID-19 PNEUMONIA. 2. CHRONIC OBSTRUCTIVE PULMONARY DISEASE EXACERBATION. 3. HYPERTENSION. 4. HYPOTHYROIDISM. HISTORY: The patient is a 70-year-old male who does all of his health care at the [facility]. He is unknown to our facility. He presented with increased shortness of breath, cough, fever, sputum, etc. Diana Haddad evaluated him in the emergency room. He was found to have a positive COVID test. Lab work otherwise was for the most part reassuring, with slightly elevated white count. His D- dimer was 1.57 and a CTA of his chest showed no PE. CRP has been elevated at admit at 8.6 and 12.2. Diana Haddad apparently talked to hospitalist attempting to transfer him and because of bed availability could not. They recommended of course remdesivir, dexamethasone, his ongoing nebulizer therapy, and actually did start him on IV antibiotics in the form of Zithromax and Rocephin. HOSPITAL COURSE: The patient has been stable since here. He has been maintained on 8 L nasal cannula with sats around 91% to 93%. He was started on IV remdesivir, IV dexamethasone, and he has had stable vital signs since admission. He had a temp on admit of 101.8. Has not been febrile since. Dr. Newberry, hospitalist at [facility] called this morning and agreed to accept him on transfer as we are concerned about his COPD and impending respiratory distress should he continue to have any failure to improve or decline. The patient is going to be accepted on transfer to [facility] with all current orders. He will go ALS ground ambulance and appropriate forms have been completed. COMPLICATIONS: During his stay were none. CONSULTATIONS: Hospitalist, Link, Dr. Newberry. DISPOSITION: ALS ground transfer to [facility]. KELLY/NYA /[id number]
[2021-07-28] MEDS ORDERED: Vitamin E (dl-alpha-tocopherol acetate) 400 Unit Cap PO SCH (08:00)
== END 2021-07-27 11:15 | DRG 177 ==
LOC: CC.ED 17:26 → UNDOADMIN 20:43 → CC.MS 20:43
PROVIDERS: ADMIT Physician Assistant Medical; ATTEND Family Medicine
PROC: XW033E5 Introduction of Remdesivir Anti-infective into Peripheral Vein, Percutaneous Approach, New Technology Group 5 (ICD-10-PCS; principal; 2021-07-26)
PROC: 3E0333Z Introduction of Anti-inflammatory into Peripheral Vein, Percutaneous Approach (ICD-10-PCS; 2021-07-27)
DX: U07.1 COVID-19 (principal); J12.82 Pneumonia due to coronavirus disease 2019; J44.0 Chronic obstructive pulmonary disease with (acute) lower respiratory infection; R06.03 Acute respiratory distress; H91.93 Unspecified hearing loss, bilateral; J44.1 Chronic obstructive pulmonary disease with (acute) exacerbation; M19.90 Unspecified osteoarthritis, unspecified site; E03.9 Hypothyroidism, unspecified; I10 Essential (primary) hypertension; H91.90 Unspecified hearing loss, unspecified ear; M54.9 Dorsalgia, unspecified; G89.29 Other chronic pain; F41.9 Anxiety disorder, unspecified; F43.10 Post-traumatic stress disorder, unspecified; Z96.652 Presence of left artificial knee joint; Z79.82 Long term (current) use of aspirin; Z79.890 Hormone replacement therapy; Z79.52 Long term (current) use of systemic steroids; Z79.899 Other long term (current) drug therapy; Z87.891 Personal history of nicotine dependence; Z99.81 Dependence on supplemental oxygen
CPT/HCPCS: 36415; 71046; 71275; 80053; 82248; 83880; 85025; 85379; 86140; 94640; 96374; 99285-25; A9270-GY; J0456; J0696; J1100; J2930; J7050; J7620-GY; Q9967; U0002

== ENCOUNTER 2022-07-18 19:13 | Emergency (ER) | payer MEDICARE, OTHER ==
[2022-07-18 19:17] VITALS: BP 120/57; PULSE 56
== END 2022-07-18 20:26 | disposition home or self-care (01) ==
LOC: CC.ED 19:13
DX: S61.402A Unspecified open wound of left hand, initial encounter (principal); S69.92XA Unspecified injury of left wrist, hand and finger(s), initial encounter; J44.9 Chronic obstructive pulmonary disease, unspecified; E03.9 Hypothyroidism, unspecified; I10 Essential (primary) hypertension; Z79.899 Other long term (current) drug therapy; Z79.82 Long term (current) use of aspirin; Z90.49 Acquired absence of other specified parts of digestive tract; Z86.16 Personal history of COVID-19; Z87.891 Personal history of nicotine dependence; W23.1XXA Caught, crushed, jammed, or pinched between stationary objects, initial encounter
CPT/HCPCS: 73140-F3; 99283; 99284

== ENCOUNTER 2023-05-05 00:12 | Emergency (ER) | payer OTHER ==
[2023-05-05 01:22] LABS: BASOPHILS ABSOLUTE AUTO 0.11 10^3/uL (0.00-0.50); BASOPHILS PERCENT AUTO 1.2 % (0-1); EOSINOPHILS ABSOLUTE AUTO 0.62 10^3/uL (0.00-1.50); EOSINOPHILS PERCENT AUTO 6.5 % (0-6); HEMATOCRIT 38.7 % (42.0-52.0); IMMATURE GRAN ABSOLUTE AUTO 0.02 10^3/uL (0.00-0.49); IMMATURE GRAN PERCENT AUTO 0.2 % (0.0-4.9); LYMPHOCYTES ABSOLUTE AUTO 3.51 10^3/uL (0.60-5.00); MEAN CORPUSCULAR HEMOGLOBIN 30.7 pg (27.0-32.0); MEAN CORPUSCULAR HGB CONC 33.6 g/dL (32.0-36.0); MEAN CORPUSCULAR VOLUME 91.3 fL (83.0-97.0); MONOCYTES ABSOLUTE AUTO 0.77 10^3/uL (0.00-1.50); MONOCYTES PERCENT AUTO 8.1 % (0-10); NEUTROPHILS ABSOLUTE AUTO 4.46 x10^3/uL (1.80-8.00); PLATELET COUNT,PLT 180 10^3/uL (150-400); RED BLOOD CELL COUNT 4.24 x10^6/uL (4.50-6.00); WHITE BLOOD CELL COUNT,WBC 9.5 10^3/uL (4.0-11.0)
[2023-05-05 01:38] LABS: ALANINE AMINOTRANSFERASE,ALT 33 U/L (12-78); ALBUMIN 3.4 g/dL (3.4-5.0); ALKALINE PHOSPHATASE 48 U/L (46-116); ASPARTATE AMNIOTRANSFERASE,AST 26 U/L (15-37); BILIRUBIN TOTAL 0.5 mg/dL (0.0-1.0); BLOOD UREA NITROGEN,BUN 21 mg/dL (7-18); C-REACTIVE PROTEIN 0.43 mg/dL (<=0.30); CALCIUM 9.4 mg/dL (8.4-10.1); CARBON DIOXIDE,CO2 28 mmol/L (21-32); CHLORIDE,CL 104 mEq/L (98-106); CREATININE 1.5 mg/dL (0.7-1.3); GLUCOSE RANDOM 140 mg/dL (75-99); POTASSIUM,K 4.5 mEq/L (3.5-5.0); PROTEIN TOTAL,TP 7.1 g/dL (6.4-8.2); SODIUM,NA 141 mEq/L (136-145)
[2023-05-05 01:39] LABS: ESTIMATED GFR 49 mL/min (>=60)
[2023-05-05 03:23] VITALS: BP 130/62; PULSE 60
== END 2023-05-05 02:00 | disposition home or self-care (01) ==
LOC: CC.ED 00:12
DX: M54.12 Radiculopathy, cervical region (principal); E03.9 Hypothyroidism, unspecified; M19.90 Unspecified osteoarthritis, unspecified site; J44.9 Chronic obstructive pulmonary disease, unspecified; I10 Essential (primary) hypertension; Z79.82 Long term (current) use of aspirin; Z86.16 Personal history of COVID-19; Z79.899 Other long term (current) drug therapy
CPT/HCPCS: 36415; 71046; 80053; 84484; 85025; 86140; 93005; 93010; 99283; 99284

== ENCOUNTER 2023-09-10 10:32 | Emergency (ER) | payer OTHER ==
[2023-09-10 10:38] VITALS: BP 121/66; PULSE 128
[2023-09-10 11:09] LABS: BASOPHILS ABSOLUTE AUTO 0.11 10^3/uL (0.00-0.50); BASOPHILS PERCENT AUTO 0.8 % (0-1); EOSINOPHILS ABSOLUTE AUTO 0.49 10^3/uL (0.00-1.50); EOSINOPHILS PERCENT AUTO 3.7 % (0-6); HEMATOCRIT 39.5 % (42.0-52.0); HEMOGLOBIN 13.1 g/dL (14.0-18.0); IMMATURE GRAN ABSOLUTE AUTO 0.03 10^3/uL (0.00-0.49); IMMATURE GRAN PERCENT AUTO 0.2 % (0.0-4.9); LYMPHOCYTES ABSOLUTE AUTO 2.78 10^3/uL (0.60-5.00); LYMPHOCYTES PERCENT AUTO 20.9 % (24-44); MEAN CORPUSCULAR HEMOGLOBIN 31.3 pg (27.0-32.0); MEAN CORPUSCULAR HGB CONC 33.2 g/dL (32.0-36.0); MEAN CORPUSCULAR VOLUME 94.5 fL (83.0-97.0); MONOCYTES ABSOLUTE AUTO 1.12 10^3/uL (0.00-1.50); MONOCYTES PERCENT AUTO 8.4 % (0-10); NEUTROPHILS ABSOLUTE AUTO 8.78 x10^3/uL (1.80-8.00); PLATELET COUNT,PLT 186 10^3/uL (150-400); RED BLOOD CELL COUNT 4.18 x10^6/uL (4.50-6.00); WHITE BLOOD CELL COUNT,WBC 13.3 10^3/uL (4.0-11.0)
[2023-09-10 11:22] LABS: ALBUMIN 3.5 g/dL (3.4-5.0); C-REACTIVE PROTEIN 11.67 mg/dL (<=0.30); CALCIUM 9.3 mg/dL (8.4-10.1); EST CRCL DRUG DOSING (CG) 61.51 mL/min; POTASSIUM,K 3.9 mEq/L (3.5-5.0); PROTEIN TOTAL,TP 7.2 g/dL (6.4-8.2)
== END 2023-09-10 11:50 | disposition home or self-care (01) ==
LOC: CC.ED 10:32
DX: J18.9 Pneumonia, unspecified organism (principal); J44.9 Chronic obstructive pulmonary disease, unspecified; I10 Essential (primary) hypertension; E11.9 Type 2 diabetes mellitus without complications; E03.9 Hypothyroidism, unspecified; Z86.16 Personal history of COVID-19; Z87.891 Personal history of nicotine dependence; Z79.82 Long term (current) use of aspirin; Z79.84 Long term (current) use of oral hypoglycemic drugs; Z79.899 Other long term (current) drug therapy
CPT/HCPCS: 36415; 71046; 80053; 85025; 86140; 99284; 99285

== ENCOUNTER 2023-10-01 19:10 | Emergency (ER) | payer OTHER ==
[~2023-10-01 19:10] MED LIST changes: -Albuterol/Ipratropium 3.0-0.5 MG/3 ML Neb Soln ONE; +Sodium Chloride 0.9% 10 ML Syringe FLUSH PRN
[2023-10-01] MEDS ORDERED: Albuterol/Ipratropium 3.0-0.5 MG/3 ML Neb Soln NEB ONE (19:25)
[2023-10-01 19:27] LABS: BASOPHILS ABSOLUTE AUTO 0.01 10^3/uL (0.00-0.50); BASOPHILS PERCENT AUTO 0.1 % (0-1); HEMATOCRIT 42.8 % (42.0-52.0); IMMATURE GRAN ABSOLUTE AUTO 0.05 10^3/uL (0.00-0.49); IMMATURE GRAN PERCENT AUTO 0.4 % (0.0-4.9); LYMPHOCYTES ABSOLUTE AUTO 1.59 10^3/uL (0.60-5.00); LYMPHOCYTES PERCENT AUTO 12.1 % (24-44); MEAN CORPUSCULAR HEMOGLOBIN 31.1 pg (27.0-32.0); MEAN CORPUSCULAR HGB CONC 32.7 g/dL (32.0-36.0); MEAN CORPUSCULAR VOLUME 95.1 fL (83.0-97.0); MONOCYTES ABSOLUTE AUTO 0.53 10^3/uL (0.00-1.50); NEUTROPHILS ABSOLUTE AUTO 10.93 x10^3/uL (1.80-8.00); NEUTROPHILS PERCENT AUTO 83.4 % (41-71); PLATELET COUNT,PLT 172 10^3/uL (150-400); WHITE BLOOD CELL COUNT,WBC 13.1 10^3/uL (4.0-11.0)
[2023-10-01 19:49] LABS: ALANINE AMINOTRANSFERASE,ALT 23 U/L (12-78); ALBUMIN 3.5 g/dL (3.4-5.0); ALKALINE PHOSPHATASE 49 U/L (46-116); ASPARTATE AMNIOTRANSFERASE,AST 21 U/L (15-37); BILIRUBIN TOTAL 0.4 mg/dL (0.0-1.0); BLOOD UREA NITROGEN,BUN 24 mg/dL (7-18); C-REACTIVE PROTEIN 1.66 mg/dL (<=0.50); CARBON DIOXIDE,CO2 25 mmol/L (21-32); CHLORIDE,CL 96 mEq/L (98-106); CREATININE 1.4 mg/dL (0.7-1.3); GLUCOSE RANDOM 276 mg/dL (75-99); POTASSIUM,K 4.7 mEq/L (3.5-5.0); PRO B-TYPE NATRIUR PEPT,BNPPRO 723 pg/mL (0-1000); PROTEIN TOTAL,TP 7.7 g/dL (6.4-8.2); SODIUM,NA 132 mEq/L (136-145)
[2023-10-01 19:51] LABS: ESTIMATED GFR 53 mL/min (>=60)
[2023-10-01] MEDS ORDERED: Lidocaine 1% 30 ML SDV INJECT ONE (20:02)
[2023-10-01 20:05] LABS: D-DIMER QUANTITATIVE 1.7 (0.00-0.50)
[2023-10-01] MEDS ORDERED: fentaNYL 100 MCG/2 ML SDV IV ONE (20:12)
[2023-10-01] MEDS ORDERED: Midazolam 1 MG/ML 2 ML SDV IVPUSH ONE (20:12)
[2023-10-01 20:14] LABS: INFLUENZA A NAA NEGATIVE (NEGATIVE); INFLUENZA B NAA NEGATIVE (NEGATIVE); RESPIRATORY SYNCYTIAL VIR NAA NEGATIVE (NEGATIVE)
[2023-10-01 20:15] LABS: CORONAVIRUS COVID-19 NAA POSITIVE (NEGATIVE)
[2023-10-01] MEDS ORDERED: Sodium Chloride 0.9% 1,000 ML IV ONE (20:19)
[2023-10-01 20:27] LABS: PTT,PARTIAL THROMBOPLSTIN TIME 22.5 SEC (20.0-30.0)
[2023-10-01] MEDS ORDERED: Piperacillin/Tazobactam 4.5 GM in Sodium Chloride 0.9% 100 ML IV ONE (21:38)
[2023-10-01] MEDS ORDERED: HYDROmorphone 0.5 MG/0.5 ML Syringe IVPUSH ONE (22:43)
[2023-10-02 00:11] VITALS: BP 158/69; PULSE 91
== END 2023-10-01 23:05 ==
LOC: CC.ED 19:10
DX: U07.1 COVID-19 (principal); T81.82XA Emphysema (subcutaneous) resulting from a procedure, initial encounter; J93.83 Other pneumothorax; J18.9 Pneumonia, unspecified organism; E11.9 Type 2 diabetes mellitus without complications; I10 Essential (primary) hypertension; E03.9 Hypothyroidism, unspecified; Z86.16 Personal history of COVID-19; Z79.82 Long term (current) use of aspirin; Z79.84 Long term (current) use of oral hypoglycemic drugs; Z79.899 Other long term (current) drug therapy; Z90.49 Acquired absence of other specified parts of digestive tract
CPT/HCPCS: 0241U; 32551; 36415; 71045; 80053; 83880; 84484; 85025; 85379; 85730; 86140; 94640; 96361; 96365; 96375; 99285; J1170; J2250; J2543; J3010; J3490; J7030; 93005; J7620-GY

== ENCOUNTER 2024-03-30 20:44 | Emergency (ER) | payer OTHER ==
[2024-03-30 20:56] VITALS: BP 126/62; PULSE 63
[2024-03-30] MEDS: Doxycycline Monohydrate 100 MG Cap PO ONE (21:23)
== END 2024-03-30 21:35 | disposition home or self-care (01) ==
LOC: CC.ED 20:44
DX: J44.0 Chronic obstructive pulmonary disease with (acute) lower respiratory infection (principal); I10 Essential (primary) hypertension; E11.9 Type 2 diabetes mellitus without complications; E03.9 Hypothyroidism, unspecified; Z79.51 Long term (current) use of inhaled steroids; Z79.82 Long term (current) use of aspirin; Z79.890 Hormone replacement therapy; Z79.84 Long term (current) use of oral hypoglycemic drugs; Z86.16 Personal history of COVID-19; Z87.891 Personal history of nicotine dependence
CPT/HCPCS: 99283; A9270-GY

== ENCOUNTER 2024-12-14 19:08 | Emergency (ER) | payer OTHER ==
[2024-12-14] MEDS: Albuterol/Ipratropium 3.0-0.5 MG/3 ML Neb Soln NEB PRN (19:15)
[2024-12-14] MEDS ORDERED: Sodium Chloride 0.9% 10 ML Syringe FLUSH PRN (19:21)
[2024-12-14] MEDS: Albuterol/Ipratropium 3.0-0.5 MG/3 ML Neb Soln ONE (19:29)
[2024-12-14] MEDS: methylPREDNISolone Sodium Succinate 125 MG/2 ML SDV IVPUSH SCH (19:44)
[2024-12-14 19:53] LABS: BASOPHILS ABSOLUTE AUTO 0.01 10^3/uL (0.00-0.50); BASOPHILS PERCENT AUTO 0.1 % (0-1); HEMATOCRIT 30.2 % (42.0-52.0); HEMOGLOBIN 9.8 g/dL (14.0-18.0); IMMATURE GRAN ABSOLUTE AUTO 0.11 10^3/uL (0.00-0.49); IMMATURE GRAN PERCENT AUTO 0.8 % (0.0-4.9); LYMPHOCYTES ABSOLUTE AUTO 1.17 10^3/uL (0.60-5.00); LYMPHOCYTES PERCENT AUTO 8.6 % (24-44); MEAN CORPUSCULAR HEMOGLOBIN 32.3 pg (27.0-32.0); MEAN CORPUSCULAR HGB CONC 32.5 g/dL (32.0-36.0); MEAN CORPUSCULAR VOLUME 99.7 fL (83.0-97.0); MONOCYTES ABSOLUTE AUTO 0.67 10^3/uL (0.00-1.50); MONOCYTES PERCENT AUTO 4.9 % (0-10); NEUTROPHILS ABSOLUTE AUTO 11.65 x10^3/uL (1.80-8.00); NEUTROPHILS PERCENT AUTO 85.6 % (41-71); PLATELET COUNT,PLT 236 10^3/uL (150-400); RED BLOOD CELL COUNT 3.03 x10^6/uL (4.50-6.00); WHITE BLOOD CELL COUNT,WBC 13.6 10^3/uL (4.0-11.0)
[2024-12-14 20:14] LABS: ALBUMIN 3.8 g/dL (3.4-5.0); BILIRUBIN TOTAL 0.7 mg/dL (0.0-1.0); C-REACTIVE PROTEIN 0.64 mg/dL (<=0.50); CREATININE 2.3 mg/dL (0.7-1.3); EST CRCL DRUG DOSING (CG) 25.04 mL/min; POTASSIUM,K 5.3 mEq/L (3.5-5.0); PROTEIN TOTAL,TP 7.3 g/dL (6.4-8.2)
[2024-12-14] MEDS: cefTRIAXone 2 GM Vial IVPUSH ONE (20:24)
[2024-12-14 21:03] VITALS: BP 146/56; PULSE 110
[2024-12-14] MEDS ORDERED: Heparin Sodium 5,000 Units/ML Vial ONE (21:51)
[2024-12-14] MEDS ORDERED: Heparin Sodium/0.45% NaCl 500 ML ONE (21:52)
[2024-12-14 21:56] LABS: LACTIC ACID 7.1 mmol/L (0.4-2.0)
[2024-12-14] MEDS: Heparin Sodium 5,000 Units/ML Vial IVPUSH ONE (22:05)
[2024-12-14] MEDS: Heparin Sodium/0.45% NaCl 500 ML IV SCH (22:06)
[2024-12-14] MEDS: LORazepam 2 MG/ML SDV IVPUSH ONE (22:18)
[2024-12-14] MEDS: Sodium Chloride 0.9% 1,000 ML IV SCH (22:19)
== END 2024-12-14 22:40 ==
LOC: CC.ED 19:08
DX: J18.9 Pneumonia, unspecified organism (principal); J44.1 Chronic obstructive pulmonary disease with (acute) exacerbation; N17.9 Acute kidney failure, unspecified; I12.9 Hypertensive chronic kidney disease with stage 1 through stage 4 chronic kidney disease, or unspecified chronic kidney disease; N18.9 Chronic kidney disease, unspecified; R79.89 Other specified abnormal findings of blood chemistry; E11.22 Type 2 diabetes mellitus with diabetic chronic kidney disease; M19.90 Unspecified osteoarthritis, unspecified site; E03.9 Hypothyroidism, unspecified; Z86.16 Personal history of COVID-19; Z90.49 Acquired absence of other specified parts of digestive tract; Z87.891 Personal history of nicotine dependence; Z79.51 Long term (current) use of inhaled steroids; Z79.82 Long term (current) use of aspirin; Z79.890 Hormone replacement therapy; Z79.84 Long term (current) use of oral hypoglycemic drugs; Z79.899 Other long term (current) drug therapy
CPT/HCPCS: 36415; 71045; 80053; 83605; 83880; 84484; 85025; 86140; 87428; 93005; 96365; 96375; 99285; J0696; J1644; J2060; J2919; J7030; 94640; J7620-GY

== ENCOUNTER 2025-04-25 17:18 | Emergency (ER) | payer OTHER ==
[2025-04-25] MEDS: methylPREDNISolone Sodium Succinate 125 MG/2 ML SDV IVPUSH STA (17:51)
[2025-04-25 17:54] LABS: BASOPHILS ABSOLUTE AUTO 0.08 10^3/uL (0.00-0.50); BASOPHILS PERCENT AUTO 0.5 % (0-1); EOSINOPHILS ABSOLUTE AUTO 0.67 10^3/uL (0.00-1.50); EOSINOPHILS PERCENT AUTO 4.1 % (0-6); IMMATURE GRAN ABSOLUTE AUTO 0.04 10^3/uL (0.00-0.49); IMMATURE GRAN PERCENT AUTO 0.2 % (0.0-4.9); LYMPHOCYTES ABSOLUTE AUTO 1.74 10^3/uL (0.60-5.00); LYMPHOCYTES PERCENT AUTO 10.7 % (24-44); MONOCYTES ABSOLUTE AUTO 0.53 10^3/uL (0.00-1.50); MONOCYTES PERCENT AUTO 3.3 % (0-10); NEUTROPHILS ABSOLUTE AUTO 13.15 x10^3/uL (1.80-8.00); NEUTROPHILS PERCENT AUTO 81.2 % (41-71); PLATELET COUNT,PLT 174 10^3/uL (150-400); RED BLOOD CELL COUNT 3.94 x10^6/uL (4.50-6.00); WHITE BLOOD CELL COUNT,WBC 16.2 10^3/uL (4.0-11.0)
[2025-04-25 18:10] LABS: ALANINE AMINOTRANSFERASE,ALT 30.0 U/L (12-78); ASPARTATE AMNIOTRANSFERASE,AST 19.0 U/L (15-37); BILIRUBIN TOTAL 0.7 mg/dL (0.0-1.0); BLOOD UREA NITROGEN,BUN 21.0 mg/dL (7-18); CARBON DIOXIDE,CO2 30.0 mmol/L (21-32); CHLORIDE,CL 105.0 mEq/L (98-106); CREATININE 1.1 mg/dL (0.7-1.3); EST CRCL DRUG DOSING (CG) 50.47 mL/min; GLUCOSE RANDOM 154.0 mg/dL (75-99); POTASSIUM,K 4.4 mEq/L (3.5-5.0); PROTEIN TOTAL,TP 6.3 g/dL (6.4-8.2); SODIUM,NA 143.0 mEq/L (136-145)
[2025-04-25 18:13] LABS: ESTIMATED GFR 70.0 mL/min (>=60)
[2025-04-25] MEDS: Take Home: predniSONE 20 MG, 2 Tab Pack PO ONE (19:01)
[2025-04-25] MEDS: Take Home: Cefuroxime 250 MG Tab, 2 Tab Pack PO ONE (19:01)
[2025-04-25 19:09] VITALS: BP 143/54; PULSE 54
== END 2025-04-25 19:23 | disposition home or self-care (01) ==
LOC: CC.ED 17:18
DX: J44.1 Chronic obstructive pulmonary disease with (acute) exacerbation (principal); I10 Essential (primary) hypertension; E11.9 Type 2 diabetes mellitus without complications; E03.9 Hypothyroidism, unspecified; Z86.16 Personal history of COVID-19; Z79.899 Other long term (current) drug therapy; Z79.82 Long term (current) use of aspirin; Z79.84 Long term (current) use of oral hypoglycemic drugs
CPT/HCPCS: 36415; 71046; 80053; 83735; 84484; 85025; 86140; 93005; 94640; 96374; 99285-25; A9270-GY; J2919; J7512